=== PATIENT | female | born 1935 | race Caucasian/White ===

== ENCOUNTER 2018-02-03 10:18 | Observation (INO) | payer OTHER, MEDICARE ==
[2018-02-05] MEDS ORDERED: ROPIVACAINE 0.2% 80 MG, EPINEPHrine 0.2 MG, KETOROLAC TROMETHAMINE 30 MG, morphINE 10 M... IU ONE (10:59)
[2018-02-06] MEDS ORDERED: NS IV ONE (06:00)
[2018-02-06] MEDS ORDERED: TRANEXAMIC ACID IV ONE (06:00)
[2018-02-06] MEDS ORDERED: BUPI/epINEPH/KETOROLAC/morphINE IU ONE (06:00)
[2018-02-06] MEDS ORDERED: BUPIVACAINE/EPI 0.5% 30 ML SDV ONE (10:15)
[2018-02-06] MEDS ORDERED: THROMBIN (BOVINE) 5,000 UNIT VIAL TP ONE (10:15)
[2018-02-06] MEDS ORDERED: CALCIUM CHLORIDE 1 GM/10 ML INJ ONE (10:15)
[2018-02-06] MEDS ORDERED: ceFAZolin 1 GM/5 ML SYR ONE (10:16)
[2018-02-06] MEDS ORDERED: LR 1,000 ML IV ONE (10:19)
--- NOTE | 2018-02-06 10:56 | PDANEPAE ---
ANE History of Present Illness L TKA ANE Past Medical History - Cardiovascular History Hx Hypertension: No Hx Arrhythmias: No Hx Chest Pain: No Hx Coronary Artery / Peripheral Vascular Disease: No Hx CHF / Valvular Disease: No Hx Palpitations: No - Pulmonary History Hx COPD: No Hx Asthma/Reactive Airway Disease: No Hx Recent Upper Respiratory Infection: No Hx Oxygen in Use at Home: No Hx Sleep Apnea: No Sleep Apnea Screening Result - Last Documented: Negative - Neurologic History Hx Cerebrovascular Accident: No Hx Seizures: No Hx Dementia: No - Endocrine History Hx Diabetes: No - Renal History Hx Renal Disorders: No - Liver History Hx Hepatic Disorders: No - Neurological & Psychiatric Hx Hx Neurological and Psychiatric Disorders: No - Cancer History Hx Cancer: No - Congenital Disorder History Hx Congenital Disorders: No - GI History Hx Gastrointestinal Disorders: Yes Gastrointestinal History Comment: hx of colonoscopies. occ constipation - Other Health History Other Health History: wears glasses/ contacts. wears hearing aides bilaterally - Chronic Pain History Chronic Pain: Yes (left knee, occ back pain) - Surgical History Prior Surgeries: appy. 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 bunion/ neuroma surgery bilateral 1996. ligament repair to foot 1999. colonoscopy ANE Review of Systems Review of systems is: negative Review of Systems: - Exercise capacity METS (RN): 4 METS ANE Patient History - Allergies Allergies/Adverse Reactions: morphine Allergy (Verified 01/02/18 10:20) nausea and weakness - Home Medications Home medications: home medication list seen and reviewed Home Medications: Ferrous Sulfate [Ferrous Sulf 325 MG (*)] 325 mg PO DAILY 12/26/17 [Last Taken Unknown] Herbals/Supplements -Info Only 1 ea PO DAILY 12/26/17 [Last Taken Unknown] Magnesium Oxide [Magnesium Oxide 400 mg (*)] 400 mg PO DAILY 12/26/17 [Last Taken Unknown] Naproxen Sodium [Aleve 220 MG (*)] 220 mg PO DAILY PRN 12/26/17 [Last Taken Unknown] Tetrahydrozoline 0.05% [Visine (*)] 1 drop EACHEYE DAILY PRN 12/26/17 [Last Taken Unknown] - Anes Hx Anes Hx: post operative nausea - Smoking Hx Smoking Status: Never smoked - Family Anes Hx Family Anes Hx: none Family Hx Anesthesia Complications: none ANE Labs/Vital Signs - Vital Signs Blood Pressure: 145/82 Heart Rate: 56 Respiratory Rate: 14 O2 Sat (%): 95 Height: 162.56 cm Weight: 65.77 kg ANE Physical Exam - Airway Neck exam: FROM Mallampati Score: Class 2 Mouth exam: normal dental/mouth exam - Pulmonary Pulmonary: no respiratory distress - Cardiovascular Cardiovascular: regular rate and rhythym - ASA Status ASA Status: II ANE Anesthesia Plan Anesthesia Plan: GA w LMA
--- NOTE | 2018-02-06 11:14 | PDHPUP ---
History & Physical Update H&P update statement: This history and physical update is based on an assessment of the patient which was completed after admission or registration (within 24 hours), but prior to the surgery/procedure. H&P update: no change in patient's condition since H&P completed
--- NOTE | 2018-02-06 11:35 | PDANEPAE ---
ANE History of Present Illness LTKA ANE Past Medical History - Cardiovascular History Hx Hypertension: No Hx Arrhythmias: No Hx Chest Pain: No Hx Coronary Artery / Peripheral Vascular Disease: No Hx CHF / Valvular Disease: No Hx Palpitations: No - Pulmonary History Hx COPD: No Hx Asthma/Reactive Airway Disease: No Hx Recent Upper Respiratory Infection: No Hx Oxygen in Use at Home: No Hx Sleep Apnea: No Sleep Apnea Screening Result - Last Documented: Negative - Neurologic History Hx Cerebrovascular Accident: No Hx Seizures: No Hx Dementia: No - Endocrine History Hx Diabetes: No - Renal History Hx Renal Disorders: No - Liver History Hx Hepatic Disorders: No - Neurological & Psychiatric Hx Hx Neurological and Psychiatric Disorders: No - Cancer History Hx Cancer: No - Congenital Disorder History Hx Congenital Disorders: No - GI History Hx Gastrointestinal Disorders: Yes Gastrointestinal History Comment: hx of colonoscopies. occ constipation - Other Health History Other Health History: wears glasses/ contacts. wears hearing aides bilaterally - Chronic Pain History Chronic Pain: Yes (left knee, occ back pain) - Surgical History Prior Surgeries: appy. 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 bunion/ neuroma surgery bilateral 1996. ligament repair to foot 1999. colonoscopy ANE Review of Systems Review of Systems: - Exercise capacity METS (RN): 4 METS ANE Patient History - Allergies Allergies/Adverse Reactions: morphine Allergy (Verified 01/02/18 10:20) nausea and weakness - Home Medications Home Medications: Ferrous Sulfate [Ferrous Sulf 325 MG (*)] 325 mg PO DAILY 12/26/17 [Last Taken Unknown] Herbals/Supplements -Info Only 1 ea PO DAILY 12/26/17 [Last Taken Unknown] Magnesium Oxide [Magnesium Oxide 400 mg (*)] 400 mg PO DAILY 12/26/17 [Last Taken Unknown] Naproxen Sodium [Aleve 220 MG (*)] 220 mg PO DAILY PRN 12/26/17 [Last Taken Unknown] Tetrahydrozoline 0.05% [Visine (*)] 1 drop EACHEYE DAILY PRN 12/26/17 [Last Taken Unknown] - NPO status NPO Since - Liquids (Date): 02/05/18 NPO Since - Liquids (Time): 22:00 NPO Since - Solids (Date): 02/05/18 NPO Since - Solids (Time): 17:30 - Smoking Hx Smoking Status: Never smoked - Family Anes Hx Family Hx Anesthesia Complications: none ANE Labs/Vital Signs - Vital Signs Blood Pressure: 145/82 Heart Rate: 56 Respiratory Rate: 14 O2 Sat (%): 95 Height: 162.56 cm Weight: 65.77 kg ANE Anesthesia Plan Anesthesia Plan: spinal Total IV Anesthesia: Yes
[2018-02-06] MEDS ORDERED: PROPOFOL/EMULSION 500 MG/50 ML BOTTLE IV ONE ×2 (11:40→15:13)
[2018-02-06] MEDS ORDERED: LIDOCAINE 2% 100 MG/5 ML SYR ONE (11:41)
[2018-02-06] MEDS ORDERED: MIDAZOLAM 2 MG/2 ML VIAL IVP ONE (11:43)
--- NOTE | 2018-02-06 11:49 | POSTANESTH ---
Post Anesthetic Evaluation Cardiovascular Status: Normal, Stable, Similar to Pre-Op Cond Respiratory Status: Normal, Stable, Similar to Pre-op Cond. Level of Consciousness/Mental Status: Can Participate in Eval, Mildly Sleepy, Arousable Pain Control: Adequate, Prn Tx Ordered Nausea/Vomiting Control: Adequate, Prn Tx Ordered Complications Possibly Related to Anesthesia: None Noted
[2018-02-06] MEDS ORDERED: DEXAMETHASONE 4 MG/ML VIAL ONE (11:50)
[2018-02-06] MEDS ORDERED: ONDANSETRON 4 MG/2 ML VIAL ONE (11:50)
[2018-02-06] MEDS ORDERED: MIDAZOLAM 2 MG/2 ML VIAL ONE (11:54)
[2018-02-06] MEDS ORDERED: ceFAZolin 1 GM VIAL ONE ×2 (12:37)
[2018-02-06] MEDS ORDERED: fentaNYL 100 MCG/2 ML INJ IVP PRN (13:15)
[2018-02-06] MEDS ORDERED: OXYCODONE/APAP 5/325 TAB PO PRN (13:15)
[2018-02-06] MEDS ORDERED: ACETAMINOPHEN 500 MG TAB PO PRN (13:15)
[2018-02-06] MEDS ORDERED: NALOXONE HCL 0.4 MG/ML INJ IVP PRN (13:15)
[2018-02-06] MEDS ORDERED: HYDROmorphONE/DILAUDID 1 MG/ML INJ IVP PRN (13:15)
[2018-02-06] MEDS ORDERED: HYDROCODONE/APAP 5/325 TAB PO PRN (13:15)
[2018-02-06] MEDS ORDERED: ONDANSETRON 4 MG/2 ML VIAL IVP PRN ×2 (13:15→15:35)
[2018-02-06] MEDS ORDERED: MEPERIDINE 25 MG/ML SYR IVP PRN (13:15)
[2018-02-06] MEDS ORDERED: PROMETHAZINE HCL 25 MG/ML INJ IVP PRN ×2 (13:15→15:35)
[2018-02-06] MEDS ORDERED: DEXAMETHASONE 4 MG/ML VIAL IVP PRN (13:15)
[2018-02-06] MEDS ORDERED: fentaNYL 100 MCG/2 ML INJ ONE ×2 (14:09→15:56)
[2018-02-06] MEDS ORDERED: TETRAHYDROZOLINE 0.05% EACHEYE PRN (15:35)
[2018-02-06] MEDS ORDERED: BISACODYL 10 MG SUPP PR PRN (15:35)
[2018-02-06] MEDS ORDERED: DIPHENOXYLATE/ATROPINE LOMOTIL 1 TAB PO PRN (15:35)
[2018-02-06] MEDS ORDERED: MAGNESIUM HYDROXIDE 30 ML UDCUP PO PRN (15:35)
[2018-02-06] MEDS ORDERED: TEMAZEPAM 15 MG CAP PO PRN (15:35)
[2018-02-06] MEDS ORDERED: LR 1,000 ML IV SCH (15:35)
[2018-02-06] MEDS ORDERED: diphenhydrAMINE 25 MG CAP PO PRN (15:35)
[2018-02-06] MEDS ORDERED: DIAZEPAM 5 MG TAB PO PRN (15:35)
[2018-02-06] MEDS ORDERED: LACTULOSE 20 GM/30 ML UDCUP PO PRN (15:35)
[2018-02-06] MEDS ORDERED: ACETAMINOPHEN 325 MG TAB PO ONE (15:35)
[2018-02-06] MEDS ORDERED: PROMETHAZINE HCL 25 MG SUPPR PR PRN (15:35)
[2018-02-06] MEDS ORDERED: ONDANSETRON DISINTEGRATING 4 MG TAB PO PRN (15:35)
[2018-02-06] MEDS ORDERED: ceFAZolin 2 GM/SWFI 2 GM/20 ML SYR IVP ONE (15:35)
[2018-02-06] MEDS ORDERED: POLYETHYLENE GLYCOL 3350 17 GM PKT PO PRN (15:35)
[2018-02-06] MEDS ORDERED: METOCLOPRAMIDE 10 MG/2 ML VIAL IVP PRN (15:35)
[2018-02-06] MEDS ORDERED: FAMOTIDINE 20 MG TAB PO ONE (15:35)
[2018-02-06] MEDS ORDERED: HYDROmorphONE/DILAUDID 2 MG/ML INJ ONE (15:56)
[2018-02-06] MEDS ORDERED: TETRAHYDROZOLINE 0.05% 15 ML OPHT.BTL EACHEYE PRN (15:58)
[2018-02-06] MEDS: ACETAMINOPHEN 325 MG TAB PO SCH (16:59)
[2018-02-06] MEDS: oxyCODONE IR 5 MG TAB PO PRN ×2 (17:01→18:32)
[2018-02-06] MEDS: FAMOTIDINE 20 MG TAB PO SCH (17:01)
[2018-02-06] MEDS: TRANEXAMIC ACID 650 MG TAB PO SCH (21:02)
[2018-02-06] MEDS: SENNOSIDES/DOCUSATE SODIUM TAB PO SCH (21:02)
[2018-02-06] MEDS: ceFAZolin 2 GM/SWFI 2 GM/20 ML SYR IVP SCH (21:03)
[2018-02-06] MEDS ORDERED: ceFAZolin 2 GM/DEXTROSE 100 ML IV SCH (22:00)
[2018-02-07] MEDS: ASPIRIN 325 MG TAB PO SCH ×2 (03:52→09:38)
[2018-02-07] MEDS: ceFAZolin 2 GM/SWFI 2 GM/20 ML SYR IVP SCH (04:37)
[2018-02-07] MEDS: ACETAMINOPHEN 325 MG TAB PO SCH ×3 (04:38→12:23)
[2018-02-07] MEDS: TRANEXAMIC ACID 650 MG TAB PO SCH ×2 (04:39→12:24)
[2018-02-07 04:45] VITALS: RESP 16
--- NOTE | 2018-02-07 06:44 | PDIAF ---
- Diagnosis Diagnosis: s/p tka revision Code Status: Full Code - Medication Management Discharge Medications: Medications to Continue on Transfer Ferrous Sulfate [Ferrous Sulf 325 MG (*)] 325 mg PO DAILY 12/26/17 [Last Taken Unknown] Herbals/Supplements -Info Only 1 ea PO DAILY 12/26/17 [Last Taken Unknown] Magnesium Oxide [Magnesium Oxide 400 mg (*)] 400 mg PO DAILY 12/26/17 [Last Taken Unknown] Naproxen Sodium [Aleve 220 MG (*)] 220 mg PO DAILY PRN 12/26/17 [Last Taken Unknown] Tetrahydrozoline 0.05% [Visine (*)] 1 drop EACHEYE DAILY PRN 12/26/17 [Last Taken Unknown] Discharge Medications: Refer to the Discharge Home Medication list for PRN reason. - Orders Services needed: Physical Therapy Diet Recommendation: no restrictions on diet Diet Texture: Regular Texture Diet Activity/Weight Bearing Restrictions: wbat. rom as saran. daily dressing changes. no soaking or immersion. may shower without bandage. f/u at two weeks [facility] seek attn for increasing pain, redness, drainage or other focal complaint - Follow Up Care Current Providers and Referrals: MINNIE STEWART [Other] Mohamud Rodriguez MD [Medical Doctor] -
--- NOTE | 2018-02-07 07:16 | SOAPPROG ---
SOAP Progress Note Assessment/Plan: Assessment: s/p left tka revision Plan: wbat rom as saran dvt precautions d/c once cleared by pt 02/07/18 07:14 Subjective: no co saran po no current nausea Objective: Vital Signs Temp Pulse Resp BP Pulse Ox 36.5 C 63 16 123/66 H 97 02/07/18 04:00 02/07/18 04:00 02/07/18 04:00 02/07/18 04:00 02/07/18 04:00 Microbiology 02/06/18 12:30 Gram Stain - Final Knee - Eswab Laboratory Results 02/07/18 04:40 02/06/18 02/07/18 02/08/18 05:59 05:59 05:59 Intake Total 1555 Output Total 1450 Balance 105 dressing intact iintact pf,df,ehl toes warm and pink no compartment syndrome muscular compartments soft nt,nd neg homans mica xrays stable anatomic alignment small fx at prox lat tibial cortex ICD10 Worksheet Patient Problems: Problems Problem Status Onset Knee joint replacement by other means Acute - ICD10 Problem Qualifiers (1) Knee joint replacement by other means
--- NOTE | 2018-02-07 07:18 | PDIAF ---
- Diagnosis Diagnosis: s/p tka revision Code Status: Full Code - Medication Management Discharge Medications: Medications to Continue on Transfer Ferrous Sulfate [Ferrous Sulf 325 MG (*)] 325 mg PO DAILY 12/26/17 [Last Taken Unknown] Herbals/Supplements -Info Only 1 ea PO DAILY 12/26/17 [Last Taken Unknown] Magnesium Oxide [Magnesium Oxide 400 mg (*)] 400 mg PO DAILY 12/26/17 [Last Taken Unknown] Tetrahydrozoline 0.05% [Visine (*)] 1 drop EACHEYE DAILY PRN 12/26/17 [Last Taken Unknown] Aspirin [Aspirin 325 mg (*)] 325 mg PO DAILY tab 02/07/18 [Last Taken Unknown] Promethazine HCl [Phenergan Rectal] 25 mg ID Q6HRS PRN #10 suppr 02/07/18 [Last Taken Unknown] oxyCODONE IR [Oxycodone Ir (*)] 5 - 10 mg PO Q3HRS PRN #40 tab 02/07/18 [Last Taken Unknown] Discharge Medications: Refer to the Discharge Home Medication list for PRN reason. - Orders Services needed: Physical Therapy Diet Recommendation: no restrictions on diet Diet Texture: Regular Texture Diet Activity/Weight Bearing Restrictions: wbat. rom as saran. daily dressing changes. no soaking or immersion. may shower without bandage. f/u at two weeks [facility] seek attn for increasing pain, redness, drainage or other focal complaint - Follow Up Care Current Providers and Referrals: MINNIE STEWART [Other] Mohamud Rodriguez MD [Medical Doctor] -
[2018-02-07] MEDS: FAMOTIDINE 20 MG TAB PO SCH (09:38)
[2018-02-07] MEDS: SENNOSIDES/DOCUSATE SODIUM TAB PO SCH (09:38)
[2018-02-07] MEDS: oxyCODONE IR 5 MG TAB PO PRN (09:53)
[2018-02-07 12:21] VITALS: BP 140/75; PULSE 76; TEMP 97.7; O2SAT 93
--- NOTE | 2018-02-07 14:15 | ASMTCMCOM ---
CM Note CM Note Notes: Pt medically stable for d/c with [facility]. Pt originally requested [facility] but they report they do not services [place]. Orders sent in [employer]. Date Signed: 02/07/2018 02:14 PM Electronically Signed By:CODY Castañeda
--- NOTE | 2018-02-07 14:15 | ASDISCHSUM ---
Discharge Information Plan Status:Home with Home Health Medically Cleared to Leave: Discharge Date:02/07/2018 02:04 PM CM D/C Disposition:Home Health Service ADT D/C Disposition:Home Health Service Projected Discharge Date:02/07/2018 11:00 AM Transportation at D/C:Family Discharge Delay Reason: Follow-Up Date:02/07/2018 11:00 AM Discharge Slot: Final Diagnosis: Placement Information Referral Type:*Home Health Care Services Referral ID:[id number] Provider Name:[facility] [place] Address 1:[address] [place] [address] Address 2: City:[place] Selection Factors: State:[place] Patient Contact Information Contact Name:DOMINGUEZ Relationship: Address:[address] City:[place] Alternate Phone: State/Zip Code:[place] [address] Email: Financial Information Financial Class:Medicare Primary Plan Desc:MEDICARE OUTPATIENT Primary Plan Number:[id number] Secondary Plan Desc:[employer]/M[employer] SUPPLEMENT Secondary Plan Number:[id number] Assessment Information [facility] CM Progress Note CM Note CM Note Notes: Pt medically stable for d/c with [facility]. Pt originally requested [facility] but they report they do not services [place]. Orders sent in [employer]. Date Signed: 02/07/2018 02:14 PM Electronically Signed By:CODY Castañeda Intervention Information
== END 2018-02-07 14:04 | disposition home health service (06) ==
LOC: F3N 02-06 09:44 → INTOOBSV 02-06 09:44 → F3N 02-06 16:27
PROVIDERS: ADMIT Orthopaedic Surgery; ATTEND Orthopaedic Surgery
PROC: 0SRD0J9 Replacement of Left Knee Joint with Synthetic Substitute, Cemented, Open Approach (ICD-10-PCS; principal; 2018-02-06 11:30)
PROC: 0SPD0JZ Removal of Synthetic Substitute from Left Knee Joint, Open Approach (ICD-10-PCS; principal; 2018-02-06 11:30)
DX: T84.033A Mechanical loosening of internal left knee prosthetic joint, initial encounter (principal); Z96.651 Presence of right artificial knee joint
CPT/HCPCS: 27487; 73560; 97110; 97161; 97165; C1713; C1776; G8978; G8979; G8980; G8987; G8988; G8989; J0171; J0690; J1100; J1885; J2001; J2250; J2270; J2405; J2550; J2704; J3010; J1170

== ENCOUNTER → 2018-03-26 | Outpatient (CLI) | payer OTHER, MEDICARE | LOC: BMCIMAGING 09:59 | PROVIDERS: ATTEND Physician Assistant | DX: Z47.1 Aftercare following joint replacement surgery (principal); Z96.652 Presence of left artificial knee joint ==

== ENCOUNTER → 2018-05-07 | Outpatient (CLI) | payer OTHER, MEDICARE | LOC: BMCIMAGING 08:42 | PROVIDERS: ATTEND Orthopaedic Surgery | DX: Z47.1 Aftercare following joint replacement surgery (principal); S82.292D Other fracture of shaft of left tibia, subsequent encounter for closed fracture with routine healing; Z96.652 Presence of left artificial knee joint ==

== ENCOUNTER → 2018-08-07 | Outpatient (CLI) | payer OTHER, MEDICARE | LOC: BMCIMAGING 09:16 | PROVIDERS: ATTEND Orthopaedic Surgery | DX: Z47.1 Aftercare following joint replacement surgery (principal); Z96.652 Presence of left artificial knee joint ==

== ENCOUNTER → 2019-02-09 | Outpatient (CLI) | payer OTHER, MEDICARE | LOC: BMCIMAGING 09:08 | PROVIDERS: ATTEND Orthopaedic Surgery | DX: Z47.1 Aftercare following joint replacement surgery (principal); Z96.652 Presence of left artificial knee joint ==